=== PATIENT | male | born 1970 | race Caucasian/White ===

== ENCOUNTER 2022-03-11 21:46 | Outpatient (CLI) | payer MEDICAID, SELFPAY ==
[2022-03-11 16:22] LABS: Kit/Specimen SENT
[2022-03-11 16:33] LABS: Abs Immature Grans 0.01 10^3/uL (0.0-0.06); Absolute Basophil Count 0.06 10^3/uL (0.0-0.2); Absolute Eosinophil Count 0.25 10^3/uL (0.0-0.7); Absolute Lymphocyte Count 1.46 10^3/uL (1.2-3.4); Absolute Monocyte Count 0.51 10^3/uL (0.1-0.8); HCT 42.2 % (40.0-50.0); HGB 14.4 g/dL (13.5-17.5); Immature Grans % 0.2; Lymphocytes % 23.6; MCH 29.9 pg (27.0-33.0); MCHC 34.1 % (32.0-36.0); MCV 88 fL (80-95); MPV 11.1 fL (8.0-11.0); Monocytes % 8.2; Platelet Count 198 10^3/uL (130-400); RBC 4.82 10^6/uL (4.36-5.78); RDW 12.1 % (11.8-14.1); RDW-SD 38.8 fL; WBC 6.19 10^3/uL (4.4-10.8)
[2022-03-11 16:41] LABS: Hemoglobin A1C 5.5 % (<5.7)
[2022-03-11 17:37] LABS: ALT 29 U/L (16-63); AST 22 U/L (15-37); Albumin 3.9 g/dL (3.4-5.0); Alkaline Phosphatase 96 U/L (46-116); Anion Gap 5.5 mmol/L (3-11); BUN 18 mg/dL (7-18); Bilirubin, Total 0.4 mg/dL (0.2-1.0); CO2 29.5 mmol/L (21.0-32.0); CREATININE 0.8 mg/dL (0.70-1.30); Calcium 8.9 mg/dL (8.5-10.1); Chloride 103 mmol/L (98-107); Estimated GFR 107.82 (mL/min/1.73m2); Glucose 106 mg/dL (74-106); Potassium 3.9 mmol/L (3.5-5.1); Sodium 138 mmol/L (136-145); Total Protein 7.5 g/dL (6.4-8.2)
[2022-03-11 17:39] LABS: C-Reactive Protein < 0.05 mg/dL (0.0-0.3)
[2022-03-11 18:12] LABS: Calculated LDL 132 mg/dL (<100); Cholesterol 207 mg/dL (<200); HDL Cholesterol 50 mg/dL (40-60); Triglyceride 129 mg/dL (<150)
[2022-03-13 14:54] LABS: Lipoprotein (a) 14 nmol/L (<75)
[2022-03-15 08:10] LABS: Homocysteine 12.1 umol/L (5.0-13.9)
[2022-03-15 10:51] LABS: Lyme Ab w Rflx to Lyme Confirm Negative (Negative)
== END 2022-03-11 21:47 | disposition home or self-care (01) ==
LOC: LBO 21:46
PROVIDERS: Visit Provider Naturopath
DX: M25.561 Pain in right knee (principal); W57.XXXA Bitten or stung by nonvenomous insect and other nonvenomous arthropods, initial encounter; Z13.220 Encounter for screening for lipoid disorders
CPT/HCPCS: 36415; 80053; 80061; 83090; 83695; 83036; 85025; 86140; 86618

== ENCOUNTER → 2022-03-29 01:55 | Outpatient (CLI) | payer MEDICAID, SELFPAY ==
--- NOTE | 2022-03-29 11:45 | DI.US_ITS ---
Exam(s) US SOFT TISSUE EXTREMITY EXAM: US SOFT TISSUE EXTREMITY CLINICAL HISTORY: SWELLING, EFFUSION, M25.469, SMALL CYST 1-2 CM POSTERIOR MID-LATERAL. TECHNIQUE: Ultrasound was performed using standard protocol. COMPARISON: No exams were available for comparison FINDINGS: Sonographic assessment utilizing grayscale and color Doppler imaging was performed and targeted to th e area of clinical concern. In the popliteal fossa, there is a 3.7 x 1.8 x 4 point 2 centimeter fluid collections consistent with a Mackenzie's cyst. IMPRESSION: Mackenzie's cyst. DATA REPOSITORY:
== END ==
PROVIDERS: PCP Naturopath; Visit Provider Naturopath
DX: M71.21 Synovial cyst of popliteal space [Baker], right knee (principal); M25.561 Pain in right knee; M25.461 Effusion, right knee
CPT/HCPCS: 76881

== ENCOUNTER 2024-01-04 22:26 | Outpatient (REF) | payer MEDICAID, SELFPAY ==
[2024-01-05 14:28] LABS: COVID-19 PCR Negative (Negative)
[2024-01-05 14:44] LABS: Source Nasal/Nares
[2024-01-09 11:04] LABS: Lyme Ab w Rflx to Lyme Confirm Negative (Negative)
[2024-01-10 14:36] LABS: B. miyamotoi PCR Negative (Negative); Babesia divergens/MO-1 Negative (Negative); Babesia duncani Negative (Negative); Babesia microti Negative (Negative); Ehrlichia chaffeensis Negative (Negative); Ehrlichia ewingii/canis Negative (Negative); Ehrlichia muris eauclairensis Negative (Negative)
[2024-01-10 14:47] LABS: Anaplasma phagocytophilum Positive (Negative)
== END 2024-01-04 22:27 | disposition home or self-care (01) ==
LOC: LBN 22:26
PROVIDERS: PCP Naturopath; Visit Provider Physician Assistant Medical
DX: B34.9 Viral infection, unspecified (principal); Z20.822 Contact with and (suspected) exposure to COVID-19; Z11.8 Encounter for screening for other infectious and parasitic diseases
CPT/HCPCS: 87635; 87637; 87798; 86618

== ENCOUNTER 2024-02-01 15:37 | Outpatient (CLI) | payer MEDICAID, SELFPAY ==
[2024-02-01 12:39] LABS: Kit/Specimen SENT
--- OUTSIDE RECORDS SUMMARY | 2024-02-01 15:40 | XMS_ITS | Encounter Summary ---
Author Organization [facility] Address [address] [place] [address] Care Team Providers Care Toy Department Manager Name Role Phone Unavailable Primary Care Provider Unavailabl e Encounter Details Date Type Department Care Team (Late st Contact Info) Description 01/05/2024 Lab Requisition [facility] Pathology & Laboratory Medicine - [facility] [address], [place] [id number] Outr Resulting Lab, Provider Social History Tobacco Use Types Packs/Day Years Used Date Smoking Tobacco: Never Assessed Sex and Gender Information Value Date Recorded Sex Assigned at Not on file Gender Identity Not on file Sexual Orientation Not on file documented as of this encounter Plan of Treatment Not on file documented as of this encounter Procedures Procedure Name Priority Date/Time Associated Diagnosis Comments LYME AB Routine 01/04/2024 19:49 EDT documented in this encounter Results * LYME AB (01/04/2024 19:49 EDT) Lyme Ab Negative Negative 01/09/2024 11:00 EDT [facility] Blood VENOUS BLOOD / Unknown 01/04/2024 19:49 EDT 01/06/2024 17:16 EDT Provider Outr Resulting Lab IMMUNOLOGY A ND SEROLOGY ORDERABLES [facility] [address] [place], [place] [address] documented in this encounter Visit Diagnoses Not on filedocumented in this encounter
--- OUTSIDE RECORDS SUMMARY | 2024-02-01 15:40 | XMS_ITS | Clinical Summary ---
Author Organization [facility] Address [address] [place] [address] Care Team Providers Care Rn Peritoneal Dialysis Name Role Phone Unavailable Primary Care Provider Unavailabl e Encounters Date Type Department Care Team Description 01/05/2024 Lab Requisition [facility] Pathology & Laboratory Medicine - [facility] [address] [place] [address] Outr Resulting Lab, Provider from Last 3 Months Social History Tobacco Use Types Packs/Day Years Used Date Smoking Tobacco: Never Assessed Sex and Gender Information Value Date Recorded Sex Assigned at Not on file Gender Identity Not on file Sexual Orientation Not on file Plan of Treatment Health Maintenance Due Date Last Done Comments Hepatitis C Screen 1970 Hepatitis B Vaccine (1 of 3 - 19+ 3-dose series) 04/05 COVID-19 Vaccine (2022- season) 2023 Procedures Procedure Name Priority Date/Time Associated Diagnosis Comments LYME AB Routine 01/04/2024 19:49 EDT from Last 3 Months Results * LYME AB (01/04/2024 19:49 EDT) Lyme Ab Negative Negative 01/09/2024 11:00 EDT [facility] Blood VENOUS BLOOD / Unknown 01/04/2024 19:49 EDT 01/06/2024 17:16 EDT Provider Outr Resulting Lab IMMUNOLOGY A ND SEROLOGY ORDERABLES [facility] [address] [place], [place] [address] from Last 3 Months
--- OUTSIDE RECORDS SUMMARY | 2024-02-01 15:40 | XMS_ITS | Data Portability ---
Author Organization [place] - [facility], MAIN OFFICE Address [place] [address] Assessment Encounter Date Assessment Date Assessment LastModified by Organization Details LastModified Time 03/03/2022 03/03/2022 community relations assistant pto with primary ussuye involving knee swelling, pain and palated urology physician right knee cyst- i spent 60 minutes in face ot face consult 45 min psent gathering family history, past injuries, etc and suggested studies and instructions for treatment and risk factor prevention. 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 and emdedded tick history i have decided to rule out lyme- Not available 03/25/2022 08:54:54 03/23/2022 03/23/2022 pt rto for interpretation of results of lab report- imaging still not done awaiting results- i spent 25 inutes with pt in review, interpretationa nd suggestions for treametnt Not available 04/17/2022 06:39:00 Plan of Treatment Reminders Order Date Submit Date Provider Last Modified By Organization Details Last Modified Time Details Appointments ESTABLISH ED PATIENT 45 2023 02:45P Agata Higgins ND Not available Not available Not available Lab lipid panel, serum 2021 [facility] Not available 03/06/2023 05:01:39 HbA1c (hemoglob in A1c), blood 2021 [facility] Not available 03/06/2023 05:01:39 lipoprote in (A), serum 2021 [facility] Not available 03/06/2023 05:01:39 homocyste ine, serum or plasma 2021 [facility] Not available 03/06/2023 05:01:39 CMP, serum or plasma 2021 [facility] Not available 03/06/2023 05:01:39 C-reactiv e protein, quantitat toro, serum or plasma 2021 [facility] Not available 03/06/2023 05:01:39 CBC w/ diff 2021 [facility] Not available 03/06/2023 05:01:39 lyme disease Ab, serum 2021 [facility] Not available 03/06/2023 05:01:39 lipid panel, serum 2021 [facility] Not available 04/24/2023 05:01:28 homocyste ine, serum or plasma 2021 [facility] Not available 04/24/2023 05:01:28 Referral None recorded. Procedures None recorded. Surgeries None recorded. Imaging US, knee - right knee- small cyst 1-2 cm posterior and mid to lateral r/o popliteal cyst/bake r's? 2021 [facility] [address], [place], [address], 10/10/2022 05:01:07 Medication Orders None recorded. Patient TargetsNo targets recorded. Patient Instructions Encounter Date Encounter Id Patient Instructions Last Modified By Organization Details Last Modified Time 03/03/2022 [id number] tick bite: care instructions Not available 03/03/2022 14:09:32 1. prodha eye 1cap 2xday 2. wobenzyme PS- 1 cap 2-3 times xday on empty stomach- 3. US of Knee to see if bhatia's cyst kk Not available 03/25/2022 08:49:59 03/23/2022 [id number] high cholesterol : care instructions Not available 04/17/2022 06:39:13 1. puregenomic b complex 1/day to lower homocysteien 2. eat more protein sources from legumes and fish- and sardines- 3. lipotroptic complex 1 cap 3xday and restest lipids in 6 weeks 4, awaiting imaging results of popliteal fossa mass Not available 04/17/2022 06:39:12 Reason for Referral None Reported. 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 01/19/20 24 Vanessa Higgins ND [address] [place] [address], [phone] , [facility] 01/19/2024 11:18:42 Headache Active 01/19/20 24 Vanessa Higgins ND [address] [place] [address], [phone] , [facility] 01/19/2024 11:19:11 Malaise Active 01/19/20 24 Vanessa Higgins ND [address] [place] [address] , [facility] 01/19/2024 11:19:28 Pain of right knee joint Active 03/03/20 22 Vanessa Higgins ND [address] [place] [address], [phone] , [facility] 03/03/2022 13:32:22 Swelling of knee joint Active 03/03/20 22 Vanessa Higgins [address], [phone] , [facility] 03/03/2022 13:58:50 Hyperlipidemia Active 03/23/20 22 Vanessa Higgins ND [address] [place] [address], [phone] , [facility] 03/23/2022 13:37:38 Problem Notes None recorded. Procedures Surgical History Date Name Laterality Status Provider Name and Address Organization Details Recorded Time 06/03/19 98 therapeutic pneumothorax completed Vanessa Higgins ND [address] [place] [address], [phone], [facility] 03/03/2022 13:36:19 Imaging Results None recorded. Procedure Notes None recorded. Medical Equipment None Reported. Allergies No known drug allergies Medications Name Sig Start Date Stop Date Status Note LastModified by Organization Details LastModified Time doxycycline hyclate 100 mg tablet TAKE ONE TABLET BY MOUTH TWICE A DAY FOR 10 DAYS active Not Available Not Available No t Available Vitamin D3 3000iu/d ay d-mulsio n active Not Available Not Available No t Available Vitals None Recorded Social History None recorded. Functional Status None recorded. Mental Status None recorded. Family History Relationship Description Onset Age of this Age Resolved Age Notes Father Malignant tumor of lung 54 Father Acute stroke 79 Father Hypertensive disorder Mother Heart murmur Mother Aneurysm 67 Mother Congenital hip dysplasia Medical History No medical history recorded. Immunizations Vaccine Type Date Status Provider Name and Address Organization Details Recorded Time COVID-19, mRNA, LNP-S, PF, 100 mcg/0.5mL dose or 50 mcg/0.25mL dose 06/03/2021 completed Vanessa Higgins ND [address] [place], [phone], [facility] - [facility] 03/03/2022 13:34:56 Past Encounters Encounter ID Performer Location Encounter Start Date Encounter Closed Date Diagnosis/Indication Diagnosis SNOMED-CT Code [id number] Vanessa Higgins ND MAIN OFFICE [address] [place] [id number] 03/03/2022 13:20:00 2022 12:29:51 Pain of right knee joint [id number] Hyperlipid emia screening [id number] Family his tory of ischemic heart disease [id number] Tick bite 79375476 Swelling o f knee joint [id number] Vanessa Higgins ND MAIN OFFICE [address] [place] [id number] 03/23/2022 13:24:14 03/23/2022 13:32:32 Hyperlipidemia 68690957 Pain of ri ght knee joint [id number] Vanessa Higgins ND MAIN OFFICE [address] [place] [id number] 01/17/2024 09:26:07 01/17/2024 11:13:24 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 [id number] Headache [id number] Health Concerns Section Related Observation LastModified by Organization Detai ls LastModified Time None Recorded Concern Status LastModified by Organization Details LastModified Time None Recorded Advance Directives Directive None Recorded Payers Encounter Date Sequence Insurance Name Policy Number Policy [place] Covered Member ID [place] Member ID Guarantor Name 03/03/2022 1 [facility] (MEDICAID) Papito Sherwood [id number] Papito Sherwood 03/23/2022 1 [facility] (MEDICAID) Papito Sherwood [id number] Papito Sherwood Notes Date Note Type Note Provider Name and Address Organization Details Recorded Time 03/03/2022 text/html HPI Notes: beginning of summer- he was playing soccer 1xweek no pop no injury realy it just started getting tight it can loosen up- once he was kneelin on it- really hurt- when he got up from that position it really hurt- he babied itfor a few days- no icing- no taking ibuprofen or advil he did put arnica and herbs on it- bithers him every day now- he cant kneel down without feeling it- once he kneels it will relax and feel a bump behind the knee on back of leg- injuries- as a kid he twisted it playing soccer as a kid- went away and stayed away until recently left knee- starting to bother but no feeling of swelling behind the knee- got moderna vaccine in 06/2021 after second dose very achey- no chronic pain or fatigue since then =- his back used to hurt all the time- -30 a lot- he went to osteopath and it helped- sts recurrs- help with corrective positoning- tick bite- occurred December after knee pain- Vanessa Higgins ND [address] [place] [address], [phone], [facility] 03/25/2022 08:57:12 03/23/2022 text/html HPI Notes: he navarrete s been taking the wobenzyme and says the knee feels better withharvesting- right knee drinks milk and incereal and lots of cheese yogurt every day- Vanessa Higgins ND [address] [facility], [place], [phone], [facility] - [facility] 04/17/2022 06:39:19
--- OUTSIDE RECORDS SUMMARY | 2024-02-01 15:40 | XMS_ITS | Encounter Summary ---
Author Organization [facility] Address [address] [place] [id number] Care Team Providers Care Wax Room Supervisor Name Role Phone Unavailable Primary Care Provider Unavailabl e Encounter Details Date Type Department Care Team (Late st Contact Info) Description 03/12/2022 Lab Requisition [facility] Pathology & Laboratory Medicine - [facility] [address] [place] [address] Outr Resulting Lab, Provider Social History Tobacco [...] Date/Time Associated Diagnosis Comments LYME AB Routine 03/11/2022 16:15 EDT HOMOCYSTEINE Routine 03/11/2022 16:15 EDT documented in this encounter Results * HOMOCYSTEINE (03/11/2022 16:15 EDT) Homocysteine 12.1 5.0 - 13.9 umol/L 03/15/2022 8:04 EDT [facility] Blood VENOUS BLOOD / Unknown 03/11/2022 16:15 EDT 03/12/2022 19:11 EDT Narrative [facility] - 03/15/2022 8:04 EDT Reference range may not apply to non-fasting samples. ??It is not recommended that EDTA plasma and serum from the same patient be used interchangeably. ??Serum concentrations have been observed to be up to 10% higher than EDTA plasma. Reference range may not apply to serum results. Provider Outr Resulting Lab CHEMISTRY & BLOOD GAS ORDERABLES Performing Organization Address [facility]/ZIP Co de Phone Number [facility] [address] [place] [address] * LYME AB (03/11/2022 16:15 EDT) Lyme Ab Negative Negative 03/15/2022 10:48 EDT [facility] Blood VENOUS BLOOD / Unknown 03/11/2022 16:15 EDT 03/12/2022 19:11 EDT Provider Outr Resulting Lab IMMUNOLOGY A ND SEROLOGY ORDERABLES Performing Organization Address [facility] Co de Phone Number [facility] [address] [place] [address] documented in this encounter Visit Diagnoses Not on filedocumented in this encounter
--- OUTSIDE RECORDS SUMMARY | 2024-02-01 15:40 | XMS_ITS | Referral Summary ---
Author Organization [facility] Address [address] [place] [address] Care Team Providers Care Progressive Care Unit Registered Nurse Name Role Phone Unavailable Primary Care Provider Unavailabl e Encounters Date Type Department Care Team Description 01/05/2024 Lab Requisition [facility] Pathology & Laboratory Medicine - [facility] [address] [place] [address] Outr Resulting Lab, Provider from Last 3 Months Social History Tobacco Use Types Packs/Day Years Used Date Smoking Tobacco: Never Assessed Sex and Gender Information Value Date Recorded Sex Assigned at Not on file Gender Identity Not on file Sexual Orientation Not on file Plan of Treatment Not on file Procedures Procedure Name Priority Date/Time Associated Diagnosis Comments LYME AB Routine 01/04/2024 19:49 EDT from Last 3 Months Results * LYME AB (01/04/2024 19:49 EDT) Lyme Ab Negative Negative 01/09/2024 11:00 EDT [facility] Blood VENOUS BLOOD / Unknown 01/04/2024 19:49 EDT 01/06/2024 17:16 EDT Provider Outr Resulting Lab IMMUNOLOGY A ND SEROLOGY ORDERABLES [facility] [address] [place] [address] from Last 3 Months
== END 2024-02-01 15:38 | disposition home or self-care (01) ==
LOC: LBO 15:37
PROVIDERS: PCP Naturopath; Visit Provider Naturopath
DX: A77.49 Other ehrlichiosis (principal)
CPT/HCPCS: 36415